=== PATIENT | female | born 1965 | race Caucasian/White ===

== ENCOUNTER → 2016-08-22 | Outpatient (CLI) | payer BC ==
[~2016-08-22] MED LIST: BUPR-83 PO; CALC1TAB10 PO; CYCL10TA6 PO; CYCL10TA7 PO; CYCL5TAB PO; CYM60 PO; DIPH25CA65 PO; DULO60CA44 PO; FURO-85 PO; LAMO150T32 PO; LMC/150 PO; METF1TAB85 PO; NRN100 PO; OMEG10007 PO; OMEP20CA9 PO; OXYC-57 PO; PRED20TA PO; SIMV-151 PO; SIMV20TA2 PO; ULT50 PO; ZOLP10TA6 PO
== END | disposition home or self-care (01) ==
LOC: C.PAPS 09:47
PROVIDERS: ATTEND Obstetrics & Gynecology
DX: Z01.419 Encounter for gynecological examination (general) (routine) without abnormal findings (principal)

== ENCOUNTER → 2016-11-14 | Outpatient (CLI) | payer BC ==
--- NOTE | 2016-11-14 14:45 | MAMMOGRAPHY REPORT ---
UNILATERAL RIGHT DIGITAL DIAGNOSTIC MAMMOGRAM TOMOSYNTHESIS WITH CAD AND TARGETED RIGHT ULTRASOUND: 11/14/2016 CLINICAL HISTORY: 51-year-old woman presents for follow-up in the right breast. She has a history o f a palpable mass in the 12:00 right breast that fluctuates in size and is painful when it is enlarg ed. TECHNIQUE: Right breast tomosynthesis in addition to standard 2D mammography was performed. Current study was also evaluated with a Computer Aided Detection (CAD) system. COMPARISON: Comparison is made to exams dated: 05/11/2016 ultrasound, 05/11/2016 mammogram, 03/08/2016 mammogram, 12/07/2010 mammogram, 08/19/2009 mammogram - [facility], and 08/18/2008. BREAST COMPOSITION: The tissue of the right breast is extremely dense, which lowers the sensitivity of mammography. FINDINGS: A triangle skin palpable marker overlies the 12:00 middle one third of the right breast, d enoting the area of fluctuating mass that is also occasionally tender. No obvious new mass, focal a elton of architectural distortion or new suspicious calcifications are seen in the right breast, with particular attention to the area of palpable concern. There are scattered round and punctate benign -appearing microcalcifications. No suspicious mass, architectural distortion or cluster of microcal cifications is seen. Real-time high-resolution ultrasound was performed in the right 12:00 breast in the area of fluctuat ing palpable mass pointed out by the patient. Additional scanning was performed in the adjacent 11: 00 and 1:00 axes. Throughout the 12:00 breast with particular attention 2 cm from the nipple, there are innumerable anechoic cysts, most likely representing fibrocystic changes. All of the cysts are anechoic, with circumscribed borders, round and oval in shape and have posterior acoustic enhanceme nt. It is difficult to assess which if any of the cysts correlates with the palpable mass, given th at it is currently small in size. There is no evidence of a suspicious solid mass. IMPRESSION: ACR BI-RADS CATEGORY 2: BENIGN, TARGETED ULTRASOUND ACR BI-RADS CATEGORY 2: BENIGN There are diffuse fibrocystic changes in the 12:00 right breast, in the area of concern pointed out by the patient. Numerous anechoic cysts are seen throughout the entire 12:00 axis on ultrasound. T hese findings are most compatible with benign fibrocystic changes. The fluctuating mass which is oc casionally tender likely represents a cyst, but given that it is not currently enlarged it is diffic ult to assess which cyst this may represent. Clinical follow-up is recommended, as biopsy of a clin ically suspicious mass should not be precluded by negative imaging. I also explained to the patient she could schedule an ultrasound-guided cyst aspiration if it again becomes enlarged and tender. O therwise, return to annual screening mammography schedule. Approximately 10% of breast cancers are not detected with mammography. A negative mammographic repor t should not delay biopsy if a clinically suggestive mass is present. Alicia Early M.D. ay/:11/14/2016 13:38:19 Registered Nurse Cardiovascular [facility]cu: Harika DAVIS)(Gabriel), [facility] letter sent: Normal 1/2 BI-RADS Code: ACR BI-RADS Category 2: Benign Ultrasound BI-RADS: ACR BI-RADS Category 2: Benign
== END | disposition home or self-care (01) ==
LOC: C.MAMM 10:25
PROVIDERS: ATTEND Surgery
DX: Z09 Encounter for follow-up examination after completed treatment for conditions other than malignant neoplasm (principal); N60.01 Solitary cyst of right breast

== ENCOUNTER → 2017-01-20 | Outpatient (CLI) | payer BC ==
--- NOTE | 2017-01-20 15:55 | DIAGNOSTIC IMAGING REPORT ---
RIGHT LOWER EXT JOINT WITHOUT CLINICAL HISTORY: RIGHT HIP PAIN Right pain TECHNIQUE: Multiaxial MRI acquisition COMPARISON STUDY: None FINDINGS: Signal characteristics of the osseous structures are unremarkable. There is no bone marrow replacing process. There is minimal degenerative changes of the articular services of the hips bilaterally. There is mild edema adjacent to the greater trochanter of the right hip. This appearance suggests a component of trochanteric bursitis. There is no evidence for fracture. There is no acetabular protrusion. Muscular structures appear symmetric. There are bilateral ovarian follicular cyst. Several uterine fibroids are present measuring up to 3 cm. IMPRESSION: 1. Trochanteric bursitis right hip. 2. No acute bony abnormality. 3. Fibroid uterus. 4. Bilateral ovarian follicular cysts. The above report was generated using voice recognition software. It may contain grammatical, syntax or spelling errors. Electronically signed by: Sanjiv Vo M.D. 01/20/2017 3:53 PM Dictated Date/Time: 01/20/2017 3:49 PM
== END | disposition home or self-care (01) ==
LOC: C.MRIBC 15:00
PROVIDERS: ATTEND Orthopaedic Surgery
DX: M70.61 Trochanteric bursitis, right hip (principal); D25.9 Leiomyoma of uterus, unspecified; N83.201 Unspecified ovarian cyst, right side; N83.202 Unspecified ovarian cyst, left side

== ENCOUNTER 2017-02-24 17:08 | Emergency (ER) | payer BC ==
[~2017-02-24] VITALS: Ht 174 cm; Wt 75.0 kg
[~2017-02-24 17:08] MED LIST changes: -CALC1TAB10 PO; -CYCL10TA7 PO; -CYCL5TAB PO; -CYM60 PO; -LAMO150T32 PO; -NRN100 PO; -OMEP20CA9 PO; -OXYC-57 PO; -PRED20TA PO; -SIMV-151 PO; -ULT50 PO; -ZOLP10TA6 PO
[2017-02-24 17:13] VITALS: TEMP 36.5; Ht 174 cm; Wt 75.0 kg
[2017-02-24] MEDS ORDERED: KETOROLAC TROMETHAMINE 30 MG/ML VIAL IV STA (17:53)
[2017-02-24] MEDS: MoRPHine SULFATE 4 MG/ML 1 ML CARP\\VIAL IV PRN ×2 (18:14→19:35)
[2017-02-24 18:23] LABS: BASO % 0.3 %; BASO ABS # 0.02 K/uL (0-0.2); COMPLETE YES; EOS % 1.7 %; HEMATOCRIT 40.1 % (37-47); IG% 0.3 %; LYMPH ABS # 1.86 K/uL (1.2-3.4); MEAN CELL VOLUME 92.4 fL (80-100); MEAN CORPUSCULAR HEMOGLOBIN 30.6 pg (25-34); MEAN CORPUSCULAR HGB CONC 33.2 g/dl (32-36); MEAN PLATELET VOLUME 10.1 fL (7.4-10.4); MONO % 6.3 %; NEUT % 67.4 %; PLATELET COUNT 284 K/uL (130-400); RED BLOOD COUNT 4.34 M/uL (4.2-5.4); WHITE BLOOD COUNT 7.75 K/uL (4.8-10.8)
--- NOTE | 2017-02-24 18:43 | DIAGNOSTIC IMAGING REPORT ---
LUMBAR SPINE WITHOUT HISTORY: 51 years-old Female acute back pain without reported trauma COMPARISON: Thoracic spine radiographs 10/04/2013 TECHNIQUE: Multiple axial CT images of the lumbar spine were obtained without contrast. A dose lowering technique was used consistent with the principals of ALARA. FINDINGS: There is 20 degrees convex left curvature of the lumbar spine measured from L2-L5. Vertebral body heights are well-maintained without compression deformity. Alignment is satisfactory. There is no acute fracture or dislocation identified. Multilevel facet arthrosis and posterior disc osteophyte complex formation is noted with mild posterior intervertebral disc space narrowing seen at the L3-L4 and L4-L5 levels as described below. There is mild atherosclerosis of the aorta. No acute intra-abdominal abnormality is identified. There is mild atrophy of the paraspinal musculature. High attenuating material of the midabdomen is only partially imaged and nonspecific. T12-L1: No central canal or foraminal narrowing. L1-L2: No central canal or foraminal narrowing. L2-L3: Mild right base posterior disc bulge and facet arthrosis without significant central canal or foraminal narrowing. L3-L4: Mild posterior intervertebral disc space narrowing and facet arthrosis is noted with broad-based posterior disc osteophyte complex formation which effaces the ventral thecal sac without significant central canal or foraminal narrowing. L4-L5: Mild posterior disc space narrowing is present in conjunction with moderate facet arthrosis and ligamentum flavum redundancy. Broad-based posterior disc bulge is present in conjunction with endplate spurring causing mild central canal stenosis. Bilateral neural foramina appear patent. L5-S1: Severe facet arthrosis is present in conjunction with broad-based posterior disc osteophyte complex formation which abuts the ventral thecal sac. No central canal or foraminal narrowing. IMPRESSION: 1. No acute fracture or subluxation of the lumbar spine. 2. Posterior disc osteophyte complex formation with facet arthrosis extends from the L3-S1 levels without high-grade central canal or foraminal narrowing identified. Degenerative changes at L4-L5 contribute to cause mild central canal stenosis as above. 3. 20 degrees convex left curvature of the lumbar spine from L2-L5. The above report was generated using voice recognition software. It may contain grammatical, syntax or spelling errors. Electronically signed by: Tano Bustillos M.D. 02/24/2017 6:42 PM Dictated Date/Time: 02/24/2017 6:33 PM
[2017-02-24 18:48] LABS: PREG INTERNAL NEGATIVE QC NEG CLEAR BACKGROUND; PREG INTERNAL POSITIVE QC POS CONTROL LINE
[2017-02-24 18:53] LABS: BUN/CREATININE RATIO 14.8 (10-20); CALCIUM 8.9 mg/dl (8.5-10.1); CREATININE 0.64 mg/dl (0.60-1.20); POTASSIUM 4.1 mmol/L (3.5-5.1)
[2017-02-24] MEDS ORDERED: OXYC-57 PO ×2 (19:35→20:13)
[2017-02-24] MEDS ORDERED: PRED20TA PO ×2 (19:35→20:13)
[2017-02-24] MEDS ORDERED: CYCL10TA6 PO (19:35)
--- NOTE | 2017-02-24 19:37 | EMERGENCY ROOM VISIT NOTE ---
History Report prepared by Shaila: Duke Rosenbaum Under the Supervision of: Dr. Emmanuel Hagen D.O. First contact with patient: 17:48 Chief Complaint: BACK PAIN Stated Complaint: SORE MID/LOWER BACK History of Present Illness The patient is a 51 year old female who presents to the Emergency Room with complaints of sharp lower back pain that has been worsening over the past 2 days. She rates her pain a 9/10 in severity. She was not doing anything abnormal at this time. She has had musculoskeletal back pain before, but she states that this is significantly worse. She notes that her lower back feels "arched." She denies any pain radiation to other areas as well as diarrhea, melena, hematochezia, or abnormal urinary symptoms. She also denies any weakness , numbness, or tingling. Her pain worsens with movement. The patient has had an endometrial ablation in the past, and does not know when her last menstrual period was but notes that her hormones are regular. Source of History: patient Onset: 2 days ago Position: back (lower) Symptom Intensity: 9/10 Quality: sharp Timing: worsening Modifying Factors (Worsening): movement Associated Symptoms: No headache, No chest pain, No abdominal pain, No melena, No hematochezia, No diarrhea, No urinary symptoms, No weakness, No numbness Review of Systems See HPI for pertinent positives & negatives. A total of 10 systems reviewed and were otherwise negative. Past Medical & Surgical Medical Problems: (1) Anxiety (2) Back strain (3) Bipolar disorder (4) Depression (5) Fibromyalgia (6) Hyperlipidemia (7) Pre-diabetes (8) Sinusitis Family History Cancer Diabetes mellitus Heart disease Hypertension Lung disease Social History Smoking Status: Never Smoker Alcohol Use: occasionally Marital Status: Housing Status: lives with family Occupation Status: unemployed Current/Historical Medications Scheduled Calcium Carbonate-Cholecalcife (Calcium 1000 + D), 1 TAB PO DAILY Duloxetine HCl (Duloxetine HCl), 120 MG PO DAILY Gabapentin (Gabapentin), 100 MG PO TID Lamotrigine (Lamictal), 150 MG PO HS Omeprazole (Prilosec), 20 MG PO DAILY Prednisone (Prednisone), 2 TAB PO DAILY Simvastatin (Simvastatin), 20 MG PO HS Scheduled PRN Cyclobenzaprine HCl (Cyclobenzaprine HCl), 10 MG PO HS PRN for Muscle Spasm Cyclobenzaprine Hcl (Flexeril), 1 TAB PO TID PRN for Pain Oxycodone/Acetaminophen 5MG/325MG (Percocet 5MG/325MG), 1 TAB PO Q6H PRN for Pain Tramadol HCl (Tramadol HCl), 50 MG PO Q6H PRN for Pain Zolpidem Tartrate (Zolpidem Tartrate), 10 MG PO HS PRN for Sleep Allergies Coded Allergies: Sulfa Drugs (Unverified Allergy, Severe, SHORTNESS OF BREATH, 10/01/15) Adhesives (Unverified Allergy, Unknown, BLISTERING AND IRRITATION OF SKIN , 10/01/15) Erythromycin (Verified Allergy, Unknown, HIVES, 10/01/15) Lorazepam (Verified Allergy, Unknown, BAD THOUGHTS, 10/01/15) Physical Exam Vital Signs Date Time Temp Pulse Resp B/P (MAP) Pulse Ox O2 Delivery O2 Flow Rate FiO2 02/24/17 19:58 90 18 94/59 97 Room Air 02/24/17 19:11 87 16 112/71 98 Room Air 02/24/17 17:13 36.5 111 18 111/70 99 Room Air Physical Exam CONSTITUTIONAL/VITAL SIGNS: Reviewed / noted above. GENERAL: Non-toxic in appearance. INTEGUMENTARY: Warm, dry, and Pandora. HEAD: Normocephalic. EYES: without scleral icterus or trauma. ENT/OROPHARYNX: clear and moist. LYMPHADENOPATHY/NECK: Is supple without lymphadenopathy or meningismus. RESPIRATORY: Lungs clear and equal. CARDIOVASCULAR: Regular rate and rhythm. GI/ABDOMEN: Soft and nontender. No organomegaly or pulsatile mass. No rebound or guarding. Normal bowel sounds. EXTREMITIES: Warm and well perfused. Normal reflexes. Normal motor and sensory function. BACK: Diffuse tenderness to the lumbar musculature and soft tissue. No rashes. NEUROLOGICAL: Intact without focal deficits. PSYCHIATRIC: normal affect. MUSCULOSKELETAL: Normally developed with good muscle tone. Medical Decision & Procedures ER Provider Diagnostic Interpretation: Radiology results as stated below per my review and radiologist interpretation: LUMBAR SPINE WITHOUT HISTORY: 51 years-old Female acute back pain without reported trauma COMPARISON: Thoracic spine radiographs 10/04/2013 TECHNIQUE: Multiple axial CT images of the lumbar spine were obtained without contrast. A dose lowering technique was used consistent with the principals of EMILY. FINDINGS: There is 20 degrees convex left curvature of the lumbar spine measured from L2-L5. Vertebral body heights are well-maintained without compression deformity. Alignment is satisfactory. There is no acute fracture or dislocation identified. Multilevel facet arthrosis and posterior disc osteophyte complex formation is noted with mild posterior intervertebral disc space narrowing seen at the L3-L4 and L4-L5 levels as described below. There is mild atherosclerosis of the aorta. No acute intra-abdominal abnormality is identified. There is mild atrophy of the paraspinal musculature. High attenuating material of the midabdomen is only partially imaged and nonspecific. T12-L1: No central canal or foraminal narrowing. L1-L2: No central canal or foraminal narrowing. L2-L3: Mild right base posterior disc bulge and facet arthrosis without significant central canal or foraminal narrowing. L3-L4: Mild posterior intervertebral disc space narrowing and facet arthrosis is noted with broad-based posterior disc osteophyte complex formation which effaces the ventral thecal sac without significant central canal or foraminal narrowing. L4-L5: Mild posterior disc space narrowing is present in conjunction with moderate facet arthrosis and ligamentum flavum redundancy. Broad-based posterior disc bulge is present in conjunction with endplate spurring causing mild central canal stenosis. Bilateral neural foramina appear patent. L5-S1: Severe facet arthrosis is present in conjunction with broad-based posterior disc osteophyte complex formation which abuts the ventral thecal sac. No central canal or foraminal narrowing. IMPRESSION: 1. No acute fracture or subluxation of the lumbar spine. 2. Posterior disc osteophyte complex formation with facet arthrosis extends from the L3-S1 levels without high-grade central canal or foraminal narrowing identified. Degenerative changes at L4-L5 contribute to cause mild central canal stenosis as above. 3. 20 degrees convex left curvature of the lumbar spine from L2-L5. The above report was generated using voice recognition software. It may contain grammatical, syntax or spelling errors. Electronically signed by: Tano Bustillos M.D. 02/24/2017 6:42 PM Dictated Date/Time: 02/24/2017 6:33 PM Laboratory Results 02/24/17 18:00 Red Blood Count 4.34, Mean Corpuscular Volume 92.4, Mean Corpuscular Hemoglobin 30.6, Mean Corpuscular Hemoglobin Concent 33.2, Mean Platelet Volume 10.1, Neutrophils (%) (Auto) 67.4, Lymphocytes (%) (Auto) 24.0, Monocytes (%) (Auto) 6.3, Eosinophils (%) (Auto) 1.7, Basophils (%) (Auto) 0.3, Neutrophils # (Auto) 5.23, Lymphocytes # (Auto) 1.86, Monocytes # (Auto) 0.49, Eosinophils # (Auto) 0.13, Basophils # (Auto) 0.02 02/24/17 18:00 Test 02/24/17 18:00 White Blood Count 7.75 K/uL (4.8-10.8) Red Blood Count 4.34 M/uL (4.2-5.4) Hemoglobin 13.3 g/dL (12.0-16.0) Hematocrit 40.1 % (37-47) Mean Corpuscular Volume 92.4 fL (80-100) Mean Corpuscular Hemoglobin 30.6 pg (25-34) Mean Corpuscular Hemoglobin Concent 33.2 g/dl (32-36) Platelet Count 284 K/uL (130-400) Mean Platelet Volume 10.1 fL (7.4-10.4) Neutrophils (%) (Auto) 67.4 % Lymphocytes (%) (Auto) 24.0 % Monocytes (%) (Auto) 6.3 % Eosinophils (%) (Auto) 1.7 % Basophils (%) (Auto) 0.3 % Neutrophils # (Auto) 5.23 K/uL (1.4-6.5) Lymphocytes # (Auto) 1.86 K/uL (1.2-3.4) Monocytes # (Auto) 0.49 K/uL (0.11-0.59) Eosinophils # (Auto) 0.13 K/uL (0-0.5) Basophils # (Auto) 0.02 K/uL (0-0.2) RDW Standard Deviation 42.4 fL (36.4-46.3) RDW Coefficient of Variation 12.5 % (11.5-14.5) Immature Granulocyte % (Auto) 0.3 % Immature Granulocyte # (Auto) 0.02 K/uL (0.00-0.02) Erythrocyte Sedimentation Rate 9 mm/hr (0-21) Anion Gap 5.0 mmol/L (3-11) Est Creatinine Clear Calc Drug Dose 109.2 ml/min Estimated GFR () 121.4 Estimated GFR (Non- 104.8 BUN/Creatinine Ratio 14.8 (10-20) Calcium Level 8.9 mg/dl (8.5-10.1) Human Chorionic Gonadotropin, Qual NEG (NEG) Laboratory results as stated above per my review. Medications Administered Medications (Trade) Dose Ordered Sig/[place] Route Start Time Stop Time Status Last Admin Dose Admin Morphine Sulfate (MoRPHine SULFATE INJ) 4 mg Q1H PRN IV 02/24/17 18:00 03/10/17 17:59 02/24/17 19:35 4 MG Ketorolac Tromethamine (Toradol Inj) 30 mg NOW STAT IV 02/24/17 17:53 02/24/17 17:56 DC 02/24/17 18:13 30 MG Dexamethasone Sodium Phosphate (Decadron Inj) 10 mg NOW ONCE IV 02/24/17 19:45 02/24/17 19:46 DC 02/24/17 19:53 10 MG ED Course 174: Previous medical records were reviewed. The patient was evaluated in room B6. A complete history and physical examination was performed. 175: Ordered Toradol Inj 30 mg IV 1800: Morphine Sulfate 4 mg IV 1944: Ordered Decadron Inj 10 mg IV 1954: On reevaluation, the patient is resting. I discussed the results and findings with the patient. She verbalized agreement of the treatment plan. She was discharged home. Medical Decision Differentials considered include cauda equina syndrome, conus medullaris, spinal cord compression syndrome, peripheral nerve compression, fractures or subluxations, intra-abdominal pathology such as abdominal aortic aneurysm or kidney stones, muscle strain, transverse myelitis, and spinal cord injury. This is a 51-year-old female who presents to the ED with a chief complaint of low back pain. The patient states that her symptoms started 2 days ago when she awoke and gradually worsened. She denies any bowel or bladder dysfunction. She denies any radiation of pain into her extremities. Denies numbness or weakness. The patient's exam reveals normal vital signs. She is mildly tachycardic. The patient does have tenderness to palpation diffusely over the musculoskeletal regions of her low back. A CT scan of the back reveals no acute issues. There is chronic findings of L3-S1 abnormalities causing some high-grade central canal narrowing. There is also noted to be 20 convex curvature in the low lumbar region. The patient was treated with IV morphine as well as IV Toradol. Laboratory studies included a normal sedimentation rate , normal CBC, PRP and negative test. The patient was given Decadron IV. She was discharged on prednisone, Percocet and Flexeril. [place] Drug Monitoring Program Search Results: patient reviewed within database, no issues identified Medication Reconcilliation Current Medication List: was personally reviewed by me Blood Pressure Screening Patient's blood pressure: Normal blood pressure Blood pressure disposition: Did not require urgent referral Impression Primary Impression: Low back pain Scribe Attestation The scribe's documentation has been prepared under my direction and personally reviewed by me in its entirety. I confirm that the note above accurately reflects all work, treatment, procedures, and medical decision making performed by me. Departure Information Dispostion Home / Self-Care Prescriptions Prednisone (Prednisone) 20 Mg Tab 2 TAB PO DAILY for 4 Days, #8 TAB Prov: Emmanuel Hagen D.O. 02/24/17 Cyclobenzaprine Hcl (FLEXERIL) 5 Mg Tab 1 TAB PO TID Y for Pain for 10 Days, #30 TAB Prov: Emmanuel Hagen D.O. 02/24/17 Oxycodone/Acetaminophen 5MG/325MG (PERCOCET 5MG/325MG) Tab 1 TAB PO Q6H Y for Pain, #20 TAB Prov: Emmanuel Hagen D.O. 02/24/17 Referrals Avelino Rose M.D. (PCP) Forms HOME CARE DOCUMENTATION FORM, IMPORTANT VISIT INFORMATION Patient Instructions Back Pain Relieve, ED Low Back Pain Injury, [facility] Additional Instructions Percocet as prescribed. No driving within 6 hours of use. Do not take additional Tylenol while taking Percocet. Ibuprofen: Take 3 tablets every 6 hours for pain. Flexeril as prescribed for spasm. Prednisone as prescribed. Follow-up with your doctor for further care and evaluation in 3 days. Return to the emergency department for worsening or new symptoms or any concerns. You have been examined and treated today on an emergency basis only. This is not a substitute for, or an effort to provide, complete comprehensive medical care. It is impossible to recognize and treat all injuries or illnesses in a single emergency department visit. It is therefore important that you follow up closely with your doctor. Call as soon as possible for an appointment. Problem Qualifiers Primary Impression: Low back pain Chronicity: acute Back pain laterality: bilateral Sciatica presence: without sciatica Qualified Codes: M54.5 - Low back pain
[2017-02-24] MEDS ORDERED: OMEP20CA9 PO (19:42)
[2017-02-24] MEDS ORDERED: SIMV-151 PO (19:42)
[2017-02-24] MEDS ORDERED: LAMO150T32 PO (19:42)
[2017-02-24] MEDS ORDERED: CYM60 PO (19:42)
[2017-02-24] MEDS ORDERED: ULT50 PO (19:42)
[2017-02-24] MEDS ORDERED: ZOLP10TA6 PO (19:42)
[2017-02-24] MEDS ORDERED: NRN100 PO (19:42)
[2017-02-24] MEDS ORDERED: CALC1TAB10 PO (19:42)
[2017-02-24] MEDS ORDERED: CYCL10TA7 PO (19:42)
[2017-02-24] MEDS ORDERED: DEXAMETHASONE SOD INJ 10 MG/ML VIAL IV ONE (19:45)
[2017-02-24 19:58] VITALS: BP 94/59; PULSE 90; O2SAT 97
[2017-02-24] MEDS ORDERED: CYCL5TAB PO (20:13)
== END 2017-02-24 20:19 | disposition home or self-care (01) ==
LOC: C.EDB 17:08
DX: M54.5 Low back pain (principal); F41.9 Anxiety disorder, unspecified; F31.9 Bipolar disorder, unspecified; R00.0 Tachycardia, unspecified; M79.7 Fibromyalgia; E78.5 Hyperlipidemia, unspecified; R73.03 Prediabetes; Z80.9 Family history of malignant neoplasm, unspecified; Z83.3 Family history of diabetes mellitus; Z82.49 Family history of ischemic heart disease and other diseases of the circulatory system; Z79.899 Other long term (current) drug therapy

== ENCOUNTER → 2018-02-09 | Outpatient (CLI) | payer OTHER ==
[~2018-02-09] MED LIST changes: -BUPR-83 PO; +CALC1TAB10 PO; -CYCL10TA6 PO; +CYCL10TA7 PO; +CYM60 PO; -DIPH25CA65 PO; -DULO60CA44 PO; -FURO-85 PO; +LAMO150T PO; -LMC/150 PO; -METF1TAB85 PO; +NRN100 PO; -OMEG10007 PO; +OMEP20CA9 PO; +SIMV-151 PO; -SIMV20TA2 PO; +ULT50 PO; +ZOLP10TA6 PO
[2018-02-09 10:09] LABS: BLOOD UREA NITROGEN 14 mg/dl (7-18); CALCIUM 9.2 mg/dl (8.5-10.1); CARBON DIOXIDE 29 mmol/L (21-32); CREATININE 0.72 mg/dl (0.60-1.20); GLUCOSE 92 mg/dl (70-99); POTASSIUM 3.8 mmol/L (3.5-5.1); SODIUM 136 mmol/L (136-145)
== END | disposition home or self-care (01) ==
LOC: C.LAB1850 08:57
PROVIDERS: ATTEND Family Medicine
DX: Z98.84 Bariatric surgery status (principal)